=== PATIENT | male | born 1980 | race Caucasian/White ===

== ENCOUNTER 2018-12-25 20:27 | Inpatient (IN) | payer BC ==
[2018-12-25 21:30] LABS: Basophils # (A) 0.3 k/uL (0-0.2); Basophils % (A) 2 %; Eosinophils # (A) 0.2 k/uL (0-0.7); Eosinophils % (A) 1 %; HCT 47.2 % (39.0-53.0); HGB 15.3 gm/dL (13.0-17.5); Lymphocytes # (A) 2.3 k/uL (1.0-4.8); Lymphocytes % (A) 11 %; MCH 31.3 pg (25.0-35.0); MCHC 32.4 g/dL (31.0-37.0); MCV 96.4 fL (80.0-100.0); Mean Platelet Volume 6.6; Monocytes # (A) 1.1 k/uL (0-1.0); Monocytes % (A) 6 %; Neutrophils # (A) 16.1 k/uL (1.3-7.7); Neutrophils % (A) 80 %; Platelet Count 313 k/uL (150-450); RBC 4.89 m/uL (4.30-5.90); RDW 12.2 % (11.5-15.5); WBC 20.2 k/uL (3.8-10.6)
[2018-12-25 21:51] LABS: INR 0.9 (<1.2); Partial Thromboplastin Time 29.1 sec (22.0-30.0); Prothrombin Time 9.4 sec (9.0-12.0)
[2018-12-25] MEDS ORDERED: ACETAMINOPHEN TAB 325 MG TAB PO STA (21:55)
[2018-12-25] MEDS ORDERED: IPRATROPIUM-ALBUTEROL 3 ML NEB INHALATION STA (21:55)
[2018-12-25] MEDS ORDERED: ALBUTEROL NEBULIZED 2.5 MG/3 ML INHALATION STA ×2 (21:55→23:04)
--- NOTE | 2018-12-25 21:56 | XR ---
EXAMINATION TYPE: XR chest 2V DATE OF EXAM: 12/25/2018 COMPARISON: NONE HISTORY: Short of breath and cough TECHNIQUE: Frontal and lateral views of the chest are obtained. FINDINGS: Heart and mediastinum are normal. Lungs are clear. Diaphragm is normal. Bony thorax appear s normal. IMPRESSION: Normal chest. Normal heart.
[2018-12-25 22:00] LABS: ALT 29 U/L (21-72); AST 26 U/L (17-59); African American GFR (CKD) >90 (>60 ml/min/1.73 sqM); Albumin 4.5 g/dL (3.5-5.0); Alkaline Phosphatase 94 U/L (38-126); Anion Gap 14 mmol/L; Blood Urea Nitrogen 19 mg/dL (9-20); Calcium 9.6 mg/dL (8.4-10.2); Carbon Dioxide 26 mmol/L (22-30); Chloride 96 mmol/L (98-107); Glucose 92 mg/dL (74-99); Potassium 3.9 mmol/L (3.5-5.1); Sodium 136 mmol/L (137-145); Total Bilirubin 0.5 mg/dL (0.2-1.3); Total Protein 7.6 g/dL (6.3-8.2)
--- NOTE | 2018-12-25 22:02 | ED ---
SOB HPI - General Chief Complaint: Shortness of Breath Stated Complaint: POSS PNEUMONIA Time Seen by Provider: 12/25/18 21:34 Source: patient Mode of arrival: ambulatory Limitations: no limitations - History of Present Illness Initial Comments: This patient is a 38-year-old man with history of asthma that was worse as child. He states that he is having shortness of breath, cough, wheezing, and chest pain. The symptoms started Saturday with upper respiratory congestion and drainage. He states that seem to move to his chest over the next couple of days. He had gone to the [facility] and then was seen at an urgent care there Saturday. He was told that sounded like asthma and he was given prednisone. He has been taking 40 mg of prednisone per day but has not felt much better yet. He did return today and states that he feels significant short of breath, was having wheezing and cough. Also noting fevers today. The cough is nonproductive. The pain is at the upper chest and seems to be worse with cough and deep breath. No relieving factors. Moderate to severe intensity. He declines analgesic at initial history and physical other than Tylenol for the fever. MD Complaint: shortness of breath, pain with inspiration -: days(s) Severity: severe Quality: sharp Consistency: constant Improves With: nothing Worsens With: coughing, inspiration Known History Of: asthma Treatments Prior to Arrival: other (Prednisone) - Related Data Home Oxygen Therapy: No Home Medications Medication Instructions Recorded Confirmed Lisinopril [Prinivil] 10 mg PO DAILY 12/25/18 12/25/18 Loratadine [Claritin] 10 mg PO DAILY 12/25/18 12/25/18 guaiFENesin [Mucinex] 600 mg PO BID PRN 12/25/18 12/25/18 predniSONE 40 mg PO DAILY 12/25/18 12/25/18 Allergies Allergy/AdvReac Type Severity Reaction Status Date / Time No Known Allergies Allergy Unverified 12/25/18 21:38 Review of Systems ROS Statement: Those systems with pertinent positive or pertinent negative responses have been documented in the HPI. ROS Other: All systems not noted in ROS Statement are negative. Constitutional: Reports: fever, chills. Denies: weakness Respiratory: Reports: cough, dyspnea, wheezes. Denies: hemoptysis Cardiovascular: Reports: chest pain. Denies: palpitations, orthopnea, edema, syncope Gastrointestinal: Denies: abdominal pain, nausea, vomiting Genitourinary: Denies: dysuria, hematuria Musculoskeletal: Denies: back pain Skin: Denies: rash Neurological: Denies: headache, weakness, numbness Past Medical History Past Medical History: Atrial Fibrillation, Asthma, Hypertension History of Any Multi-Drug Resistant Organisms: None Reported Additional Past Surgical History / Comment(s): lip repair, eye surgery Past Psychological History: No Psychological Hx Reported Smoking Status: Current every day smoker Past Alcohol Use History: Heavy Past Drug Use History: Marijuana General Exam Limitations: no limitations General appearance: alert, in no apparent distress Head exam: Present: atraumatic, normocephalic Eye exam: Present: normal appearance. Absent: scleral icterus, conjunctival injection ENT exam: Present: mucous membranes dry Neck exam: Present: normal inspection, full ROM Respiratory exam: Present: respiratory distress (Mild tachypnea), wheezes. Absent: rales, rhonchi, stridor, accessory muscle use, decreased breath sounds, prolonged expiratory Cardiovascular Exam: Present: normal rhythm, tachycardia (Rate approximately 104 at my exam), normal heart sounds. Absent: systolic murmur, diastolic murmur, rubs, gallop GI/Abdominal exam: Present: soft. Absent: distended, tenderness, guarding, rebound, rigid, mass Extremities exam: Present: normal inspection, normal capillary refill. Absent: pedal edema, calf tenderness Back exam: Present: normal inspection. Absent: CVA tenderness (R), CVA tenderness (L) Neurological exam: Present: alert Skin exam: Present: warm, dry, intact, normal color. Absent: rash Course Vital Signs 12/25/18 12/25/18 12/25/18 20:56 21:47 22:02 Temperature 100.6 F H 97.1 F L Pulse Rate 119 H Respiratory 24 22 Rate Blood Pressure 172/87 Blood Pressure 114/84 [Left Arm] O2 Sat by Pulse 92 L 90 L Oximetry 12/25/18 12/25/18 22:15 22:25 Temperature Pulse Rate 118 H 128 H Respiratory Rate Blood Pressure Blood Pressure [Left Arm] O2 Sat by Pulse Oximetry Medical Decision Making - Lab Data Result diagrams: 12/25/18 21:12 12/25/18 21:12 Lab Results 12/25/18 12/25/18 12/25/18 Range/Units 21:12 21:12 21:12 WBC 20.2 H (3.8-10.6) k/uL RBC 4.89 (4.30-5.90) m/uL Hgb 15.3 (13.0-17.5) gm/dL Hct 47.2 (39.0-53.0) % MCV 96.4 (80.0-100.0) fL MCH 31.3 (25.0-35.0) pg MCHC 32.4 (31.0-37.0) g/dL RDW 12.2 (11.5-15.5) % Plt Count 313 (150-450) k/uL Neutrophils % 80 % Lymphocytes % 11 % Monocytes % 6 % Eosinophils % 1 % Basophils % 2 % Neutrophils # 16.1 H (1.3-7.7) k/uL Lymphocytes # 2.3 (1.0-4.8) k/uL Monocytes # 1.1 H (0-1.0) k/uL Eosinophils # 0.2 (0-0.7) k/uL Basophils # 0.3 H (0-0.2) k/uL PT (9.0-12.0) sec INR (<1.2) APTT (22.0-30.0) sec D-Dimer (<0.60) mg/L FEU Sodium 136 L (137-145) mmol/L Potassium 3.9 (3.5-5.1) mmol/L Chloride 96 L (98-107) mmol/L Carbon Dioxide 26 (22-30) mmol/L Anion Gap 14 mmol/L BUN 19 (9-20) mg/dL Creatinine 0.91 (0.66-1.25) mg/dL Est GFR (CKD-EPI)AfAm >90 (>60 ml/min/1.73 sqM) Est GFR (CKD-EPI)NonAf >90 (>60 ml/min/1.73 sqM) Glucose 92 (74-99) mg/dL Plasma Lactic Acid Eric 1.4 (0.7-2.0) mmol/L Calcium 9.6 (8.4-10.2) mg/dL Total Bilirubin 0.5 (0.2-1.3) mg/dL AST 26 (17-59) U/L ALT 29 (21-72) U/L Alkaline Phosphatase 94 (38-126) U/L Troponin I (0.000-0.034) ng/mL Total Protein 7.6 (6.3-8.2) g/dL Albumin 4.5 (3.5-5.0) g/dL 12/25/18 12/25/18 12/25/18 Range/Units 21:12 21:12 21:12 WBC (3.8-10.6) k/uL RBC (4.30-5.90) m/uL Hgb (13.0-17.5) gm/dL Hct (39.0-53.0) % MCV (80.0-100.0) fL MCH (25.0-35.0) pg MCHC (31.0-37.0) g/dL RDW (11.5-15.5) % Plt Count (150-450) k/uL Neutrophils % % Lymphocytes % % Monocytes % % Eosinophils % % Basophils % % Neutrophils # (1.3-7.7) k/uL Lymphocytes # (1.0-4.8) k/uL Monocytes # (0-1.0) k/uL Eosinophils # (0-0.7) k/uL Basophils # (0-0.2) k/uL PT 9.4 (9.0-12.0) sec INR 0.9 (<1.2) APTT 29.1 (22.0-30.0) sec D-Dimer 0.42 (<0.60) mg/L FEU Sodium (137-145) mmol/L Potassium (3.5-5.1) mmol/L Chloride (98-107) mmol/L Carbon Dioxide (22-30) mmol/L Anion Gap mmol/L BUN (9-20) mg/dL Creatinine (0.66-1.25) mg/dL Est GFR (CKD-EPI)AfAm (>60 ml/min/1.73 sqM) Est GFR (CKD-EPI)NonAf (>60 ml/min/1.73 sqM) Glucose (74-99) mg/dL Plasma Lactic Acid Eric (0.7-2.0) mmol/L Calcium (8.4-10.2) mg/dL Total Bilirubin (0.2-1.3) mg/dL AST (17-59) U/L ALT (21-72) U/L Alkaline Phosphatase (38-126) U/L Troponin I <0.012 (0.000-0.034) ng/mL Total Protein (6.3-8.2) g/dL Albumin (3.5-5.0) g/dL - EKG Data -: EKG Interpreted by Il EKG shows normal: sinus rhythm, axis (Normal), intervals (Normal), QRS complexes (Normal), ST-T waves (Normal) Rate: tachycardia (Rate 106 bpm) Disposition Clinical Impression: Acute bronchitis Disposition: ADMITTED IP TO THIS HOSP Condition: Fair Referrals: Erasto Ricketts DO [Primary Care Provider] - 1-2 days
[2018-12-25] MEDS ORDERED: methylPREDNISolone SOD SUCCI 125 MG/2 ML VIAL IV STA (23:04)
[2018-12-25] MEDS ORDERED: ALBUTEROL NEBULIZED 2.5 MG/3 ML INHALATION PRN (23:12)
[2018-12-25] MEDS: SODIUM CHLORIDE 0.9% 1,000 ML IV SCH (23:23)
[2018-12-25] MEDS ORDERED: NICOTINE 21MG/24HR PATCH TRANSDERM STA (23:59)
[2018-12-26] MEDS ORDERED: IBUPROFEN 600 MG TAB PO STA (00:06)
[2018-12-26] MEDS ORDERED: ACETAMINOPHEN TAB 325 MG TAB PO PRN (00:07)
[2018-12-26 01:22] VITALS: BMI 25.0
[2018-12-26] MEDS: IPRATROPIUM-ALBUTEROL 3 ML NEB INHALATION SCH ×4 (07:17→19:05)
[2018-12-26] MEDS ORDERED: SYMBICORT 80-4.5 MCG INHALER INHALATION SCH (08:00)
[2018-12-26] MEDS: guaiFENesin 600 MG TABLET.ER PO SCH ×2 (08:57→21:25)
[2018-12-26] MEDS: SODIUM CHLORIDE 0.9% 1,000 ML IV SCH (08:57)
[2018-12-26] MEDS: NICOTINE 21MG/24HR PATCH TRANSDERM SCH (08:57)
[2018-12-26] MEDS ORDERED: predniSONE 20 MG TAB PO SCH (09:00)
--- NOTE | 2018-12-26 12:29 | CONS ---
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 The patient came in with complaints of increasing shortness of breath, chest tightness, wheezing cough and chest discomfort. It had been going on for some time. He apparently saw his doctor who prescribed some prednisone and an antibiotic. He states it seemed like he initially got better but than got worse again. He apparently was in the [facility] and got worse. He visited an urgent care center or health clinic up in that area. He decided to drive back down to the [facility]. He ended up in the emergency room on December 25 with shortness of breath. He does have a history of childhood asthma. Does carry around a rescue inhaler that he uses infrequently. The patient complains of chest tightness, wheezing, cough, shortness of breath and phlegm production. He is feeling better now than he was earlier. He does smoke cigarettes. 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 Hence, the inhalation of smoke and other things like that. HOME MEDICATIONS: His home medications include lisinopril, loratadine, guaifenesin, prednisone and a rescue inhaler. The prednisone was just recently given to him. His only chronic medications really are the lisinopril and a rescue inhaler and Claritin. ALLERGIES: Allergies are denied. MEDICAL HISTORY: Medical history includes hypertension, asthma, and a history of atrial fibrillation. SURGICAL HISTORY: Surgical history includes eye surgery and lip repair. SOCIAL HISTORY: Social history is positive for ongoing tobacco use. He also drinks heavily and apparently has used marijuana in the past. FAMILY HISTORY: Family history is unremarkable. Parents are otherwise healthy, I believe. REVIEW OF SYSTEMS: CONSTITUTIONAL: Negative. NEUROLOGIC: Negative. HEENT: Negative. CARDIOVASCULAR: Negative. PULMONARY: Shortness of breath, chest tightness, wheezing, cough, phlegm production. GI: Negative. : Negative. RHEUMATOLOGIC: Negative. IMMUNOLOGIC: Negative. ENDOCRINOLOGIC: Negative. DERMATOLOGIC: Negative. PHYSICAL EXAMINATION: VITAL SIGNS: Current vital signs are reviewed. They include a temperature 97.4, heart rate 72, respiratory rate 20, blood pressure 120/72, mean 88 and 2 L saturation 96%. GENERAL: Appears in no acute distress. HEENT: Examination is grossly unremarkable. Mucous membranes are moist. No oral lesions. Nasal O2 in place. NECK: Supple. Full range of motion. No adenopathy. Neck veins are flat. CARDIOVASCULAR: Examination reveals regular rhythm and rate. Heart rate mid 70s. S1, S2 normal. No murmur. LUNGS: Reveal coarse inspiratory and expiratory wheezes. Breath sounds are diminished. There is prolongation. No crackles. Breath sounds are equal bilaterally. ABDOMEN: Soft. Bowel sounds are heard. EXTREMITIES: Are intact. No cyanosis, clubbing, or edema. SKIN: Without rash. NEUROLOGIC: Examination is brief but nonfocal. LAB DATA: Lab data is reviewed. White count 20.2, hemoglobin 15.3, hematocrit 47.2, platelet count 313,000. PT, INR, PTT and D-dimer all normal. Sodium 136, potassium 3.9, chloride 96, CO2 is 26. BUN and creatinine were 19 and 0.91. Anion gap is normal. The rest of his comprehensive metabolic profile was negative. Influenza screen was negative. A chest x-ray shows normal chest. MEDICATIONS: Medications are reviewed. ASSESSMENT: 1. Asthma exacerbation complicated by purulent tracheobronchitis. 2. Rule out chronic obstructive pulmonary disease from chronic tobacco use. 3. History of chronic tobacco abuse. 4. History of heavy alcohol use. 5. Previous history of marijuana use. 6. History of hypertension. PLAN: The patient's medications are adjusted accordingly. Currently, he is on Solu-Medrol 60 q.6. He is getting a nicotine patch. The patient is on ceftriaxone. It can be switched to an oral antibiotic. His other medications are reviewed. Additional recommendations and suggestions are forthcoming. He is counseled about the importance of smoking cessation. Additional recommendations and suggestions are made. MMODL / IJN: [id number] /
[2018-12-26] MEDS: methylPREDNISolone SOD SUCCI 125 MG/2 ML VIAL IV SCH ×3 (12:35→23:53)
[2018-12-26] MEDS: AZITHROMYCIN 500 MG TAB PO SCH (12:36)
[2018-12-26] MEDS: HEPARIN SODIUM,PORCINE 5,000 UNIT/ML 1 ML VIAL SQ SCH ×2 (15:15→23:54)
[2018-12-26 17:22] LABS: Glucose,Whole Blood 200 mg/dL (75-99)
[2018-12-26] MEDS: FORMOTEROL FUMARATE 20 MCG/2 ML NEBU INHALATION SCH (19:05)
[2018-12-26] MEDS: BUDESONIDE 1 MG/2 ML NEBU INHALATION SCH (19:06)
--- NOTE | 2018-12-26 21:33 | P.HPIM ---
History of Present Illness H&P Date: 12/26/18 Chief Complaint: Shortness of breath Patient is a 38-year-old male with a known history of childhood asthma, anxiety/PTSD, ongoing nicotine addiction-smokes 1-1/2 pack per day and hypertension came to ER with complaints of worsening shortness of breath, wheezing and chest tightness. Patient says that his symptoms started last Saturday with upper respiratory infection and nasal congestion and drainage. Patient was seen by his primary care physician and prescribed prednisone tapering course. Patient was also given antibiotics but patient does not know which antibiotic. His symptoms started to get better. Patient traveled to [facility] and symptoms started to get worse. Patient was seen by urgent care on Saturday and was given prednisone 40 mg daily. Her symptoms. Has not been getting better which made him come to ER. Patient says that she felt significantly shortness breath and wheezing and cough. Patient says that he was hypoxic at home. Pulse ox level was 86% as per patient. Patient does have cough without sputum production. WORSE with deep breathing. No fever no chills. Not much sputum production. Denied any nausea vomiting or diarrhea. No headache or dizziness or lightheadedness. Patient continues to smoke daily. EKG showed sinus tachycardia Chest x-ray is negative. WBC 20.2. Influenza PCR negative Review of Systems Constitutional: Patient denies any fever or chills . No generalized weakness or weight loss. Abdomen: Patient denied nausea vomiting and diarrhea and abdominal pain. Cardiovascular: Patient denies any chest pain or short of breath no palpitations. Respiratory: Cough congestion and shortness of breath and wheezing Neurologic: Patient denied any numbness or tingling headache. Musculoskeletal: Patient denies any complaints of joint swelling or deformity. Skin: Negative Psychiatric: Negative Endocrine: No heat or cold intolerance. No recent weight gain. Genitourinary: No dysuria or hematuria. All other 14 point ROS negative except the above Past Medical History Past Medical History: Atrial Fibrillation, Asthma, Hypertension History of Any Multi-Drug Resistant Organisms: None Reported Additional Past Surgical History / Comment(s): lip repair, eye surgery Past Psychological History: Anxiety, PTSD Smoking Status: Current every day smoker Past Alcohol Use History: Heavy Additional Past Alcohol Use History / Comment(s): drinks 2-3 drinks daily. Past Drug Use History: Marijuana - Past Family History Father Family Medical History: No Reported History Mother Family Medical History: No Reported History Sister(s) Family Medical History: No Reported History Medications and Allergies Home Medications Medication Instructions Recorded Confirmed Type Albuterol Sulfate [Ventolin HFA] 2 puff INHALATION RT-QID PRN 12/25/18 12/25/18 History Lisinopril [Prinivil] 10 mg PO DAILY 12/25/18 12/25/18 History Loratadine [Claritin] 10 mg PO DAILY 12/25/18 12/25/18 History guaiFENesin [Mucinex] 600 mg PO BID 12/25/18 12/25/18 History predniSONE 40 mg PO DAILY 12/25/18 12/25/18 History Allergies Allergy/AdvReac Type Severity Reaction Status Date / Time No Known Allergies Allergy Unverified 12/25/18 21:38 Physical Exam Vitals: Vital Signs Temp Pulse Pulse Resp BP BP Pulse Ox 12/26/18 07:31 76 12/26/18 07:17 68 12/26/18 05:42 97.4 F L 62 20 120/72 96 12/26/18 02:00 98.1 F 20 12/26/18 00:50 98.4 F 101 H 22 133/79 90 L 12/25/18 23:57 101.9 F H 108 H 20 127/65 94 L 12/25/18 23:27 118 H 12/25/18 23:17 122 H 12/25/18 22:25 128 H 12/25/18 22:15 118 H 12/25/18 22:02 97.1 F L 12/25/18 21:47 22 114/84 90 L 12/25/18 20:56 100.6 F H 119 H 24 172/87 92 L Intake and Output 12/25/18 12/26/18 12/26/18 22:59 06:59 14:59 Other: # Voids 1 Weight 88.451 kg PHYSICAL EXAMINATION: Patient is lying in the bed comfortably, no acute distress, awake alert and oriented.. HEENT: Normocephalic. Neck is supple. Pupils reactive. Nostrils clear. Oral cavity is moist. Ears reveal no drainage. Neck reveals no JVD, carotid bruits, or thyromegaly. CHEST EXAMINATION: Trachea is central. Symmetrical expansion. Bilateral diffuse wheezing. No crackles or rhonchi.. CARDIAC: Normal S1, S2 with no gallops. No murmurs ABDOMEN: Soft. Bowel sounds normal. No organomegaly. No abdominal bruits. Extremities: reveal no edema. No clubbing or cyanosis Neurologically awake, alert, oriented x3 with well-coordinated movements. No focal deficits noted Skin: No rash or skin lesions. Psychiatric: Coperative. Nonsuicidal Musculoskeletal: No joint swelling or deformity. Normal range of motion. Results CBC & Chem 7: 12/25/18 21:12 12/25/18 21:12 Labs: Abnormal Lab Results - Last 24 Hours (Table) 12/25/18 12/25/18 Range/Units 21:12 21:12 WBC 20.2 H (3.8-10.6) k/uL Neutrophils # 16.1 H (1.3-7.7) k/uL Monocytes # 1.1 H (0-1.0) k/uL Basophils # 0.3 H (0-0.2) k/uL Sodium 136 L (137-145) mmol/L Chloride 96 L (98-107) mmol/L Thrombosis Risk Factor Assmnt - DVT/VTE Prophylaxis DVT/VTE Prophylaxis: Pharmacologic Prophylaxis ordered - Choose All That Apply Any of the Below Risk Factors Present?: No Other Risk Factors: No Other congenital or acquired thrombophilia - If yes, enter type in comment: No Thrombosis Risk Factor Assessment Level: Very Low Risk Assessment and Plan Assessment: Acute bronchospasm/asthma exacerbation due to acute tracheobronchitis Possible underlying COPD History of childhood asthma Hypertension Anxiety/PTSD History of marijuana use Alcohol abuse Ongoing nicotine addiction DVT prophylaxis with heparin subcu Plan: Patient will be continued on IV Solu-Medrol. Patient was given a dose of ceftriaxone in the ER. Patient was started on azithromycin. Pulmonary is following. Continue with DuoNeb's and follow up closely. Oxygen therapy as needed. Further recommendations based on the clinical course. Patient was counseled extensively for smoking cessation. Time with Patient: Greater than 30
[2018-12-27] MEDS: methylPREDNISolone SOD SUCCI 125 MG/2 ML VIAL IV SCH ×3 (06:20→17:56)
[2018-12-27 07:04] LABS: Glucose,Whole Blood 142 mg/dL (75-99)
[2018-12-27] MEDS: IPRATROPIUM-ALBUTEROL 3 ML NEB INHALATION SCH ×4 (07:27→20:04)
[2018-12-27] MEDS: FORMOTEROL FUMARATE 20 MCG/2 ML NEBU INHALATION SCH ×2 (07:27→20:03)
[2018-12-27] MEDS: BUDESONIDE 1 MG/2 ML NEBU INHALATION SCH ×2 (07:27→20:04)
[2018-12-27] MEDS: HEPARIN SODIUM,PORCINE 5,000 UNIT/ML 1 ML VIAL SQ SCH ×2 (07:44→16:16)
[2018-12-27] MEDS: NICOTINE 21MG/24HR PATCH TRANSDERM SCH (07:45)
[2018-12-27] MEDS: THIAMINE 100 MG TAB PO SCH (07:45)
[2018-12-27] MEDS: guaiFENesin 600 MG TABLET.ER PO SCH ×2 (07:45→21:18)
[2018-12-27 07:52] LABS: HCT 45.5 % (39.0-53.0); HGB 14.6 gm/dL (13.0-17.5); MCH 31.7 pg (25.0-35.0); MCHC 32.1 g/dL (31.0-37.0); MCV 98.8 fL (80.0-100.0); Mean Platelet Volume 6.8; Platelet Count 405 k/uL (150-450); RBC 4.61 m/uL (4.30-5.90); RDW 12.3 % (11.5-15.5); WBC 24.4 k/uL (3.8-10.6)
[2018-12-27 07:57] LABS: African American GFR (CKD) >90 (>60 ml/min/1.73 sqM); Anion Gap 14 mmol/L; Blood Urea Nitrogen 12 mg/dL (9-20); Carbon Dioxide 21 mmol/L (22-30); Chloride 105 mmol/L (98-107); Glucose 150 mg/dL (74-99); Potassium 4.6 mmol/L (3.5-5.1); Sodium 140 mmol/L (137-145)
[2018-12-27] MEDS: LISINOPRIL 10 MG TAB PO SCH (12:01)
[2018-12-27] MEDS: AZITHROMYCIN 500 MG TAB PO SCH (12:01)
--- NOTE | 2018-12-27 12:30 | CT ---
EXAMINATION TYPE: CT angio chest DATE OF EXAM: 12/27/2018 12:02 PM COMPARISON: None. HISTORY: Difficulty breathing CT DLP: 578 mGycm Automated exposure control for dose reduction was used. CONTRAST: CTA scan of the thorax is performed with IV Contrast, patient injected with 100 mL of Isovue 370, pul monary embolism protocol. . FINDINGS: There is some atelectasis or consolidation within the right middle lobe and also left lingu la. There is patchy groundglass opacity throughout the left lung in both the upper and lower lobes. There is no significant axillary adenopathy. There is some shotty mediastinal adenopathy. There is no significant hilar adenopathy There is no evidence of pulmonary embolus. The aorta is normal in caliber without evidence of dissection. There is no pleural or pericardial flu id. The heart is not enlarged. Visualized portions of the upper abdomen are unremarkable. There is minimal hypertrophic spondylosis within the spine. IMPRESSION: 1. THIS EXAMINATION IS NEGATIVE FOR PULMONARY EMBOLUS. 2. PATCHY GROUNDGLASS OPACITIES THROUGHOUT THE LEFT LUNG MAY REFLECT PNEUMONITIS. THERE IS MORE SOLID CONSOLIDATION IN THE RIGHT MIDDLE LOBE AND LEFT LINGULA. PLEASE CORRELATE FOR PNEUMONIA.
[2018-12-27] MEDS ORDERED: cefTRIAXone 1,000 MG VIAL (IM USE) IM SCH (13:00)
--- NOTE | 2018-12-27 13:11 | P.PN ---
Subjective Progress Note Date: 12/27/18 Principal diagnosis: Acute exacerbation of chronic bronchial asthma, complicated by purulent tracheobronchitis. The patient is seen today 12/27/2018 in follow-up on the regular medical floor. He is awake and alert in no acute distress. He is breathing a little easier today as compared to yesterday. Not quite back to his baseline. Continues with a cough and dyspnea on exertion. Some chest tightness and wheezing. Blood culture reveals no growth to date. Sputum cultures pending. White count 24.4. Hemoglobin 14.6. Creatinine 0.66. Glucose 150. CT angiogram ruled out pulmonary embolus. There is some patchy groundglass opacities throughout the left lung with possible pneumonitis. There is solid consolidation in the right middle lobe and left lingula suspicious for pneumonia. He is currently on azithromycin. Objective - Vital Signs Vital signs: Vital Signs Temp 97.5 F L 12/27/18 07:00 Pulse 93 12/27/18 11:17 Resp 16 12/27/18 07:00 BP 153/91 12/27/18 07:00 Pulse Ox 92 L 12/27/18 07:00 Intake & Output 12/26/18 12/27/18 12/27/18 18:59 06:59 18:59 Intake Total 1080 Balance 1080 Intake: Oral 1080 Other: # Voids 3 3 - Exam GENERAL EXAM: Alert, pleasant 38-year-old gentleman, comfortable in no apparent distress. On 2 L nasal cannula. HEAD: Normocephalic. EYES: Normal reaction of pupils, equal size. NOSE: Clear with pink turbinates. THROAT: No erythema or exudates. NECK: No masses, no JVD. CHEST: No chest wall deformity. LUNGS: Equal air entry with few scattered rhonchi, end expiratory wheeze, diminished. CVS: S1 and S2 normal with no audible murmur, regular rhythm. ABDOMEN: No hepatosplenomegaly, normal bowel sounds, no guarding or rigidity. SPINE: No scoliosis or deformity SKIN: No rashes CENTRAL NERVOUS SYSTEM: No focal deficits, tone is normal in all 4 extremities. EXTREMITIES: There is no peripheral edema. No clubbing, no cyanosis. Peripheral pulses are intact. - Labs CBC & Chem 7: 12/27/18 07:10 12/27/18 07:10 Labs: Abnormal Lab Results - Last 24 Hours (Table) 12/26/18 12/27/18 12/27/18 Range/Units 17:20 07:03 07:10 WBC 24.4 H (3.8-10.6) k/uL Carbon Dioxide (22-30) mmol/L Glucose (74-99) mg/dL POC Glucose (mg/dL) 200 H 142 H (75-99) mg/dL 12/27/18 Range/Units 07:10 WBC (3.8-10.6) k/uL Carbon Dioxide 21 L (22-30) mmol/L Glucose 150 H (74-99) mg/dL POC Glucose (mg/dL) (75-99) mg/dL Microbiology - Last 24 Hours (Table) 12/26/18 22:11 Sputum Culture - Preliminary Sputum 12/25/18 21:12 Blood Culture - Preliminary Blood No Growth after 24 hours Assessment and Plan Assessment: Impression: #1 Acute exacerbation of chronic bronchial asthma, complicated by purulent tracheobronchitis and multilobar pneumonia. #2 Chronic and ongoing tobacco dependence including vaping. #3 Hypertension. #4 History of previous marijuana use. #5 History of alcohol use. Plan: The patient was seen and evaluated by Dr. Chacko. CAT scan and labs were reviewed. We'll continue with his current treatment plan. Add ceftriaxone in addition to the 80s azithromycin. He is educated regarding importance of complete smoking cessation. Habitrol patch is in place. Titrate down the FiO2 as tolerated. We will continue to follow and make further recommendations based on his clinical status. I, the cosigning physician, performed a history & physical examination of the patient. Lungs sounds with few scattered rhonchi, end expiratory wheeze, dimi nished. Maintaining good O2 saturations in the 90s on 2 L/m per nasal cannula. I discussed the assessment and plan of care with my nurse practitioner, Miriam Gomez. I attest to the above note as dictated by her.
[2018-12-28] MEDS: methylPREDNISolone SOD SUCCI 125 MG/2 ML VIAL IV SCH ×5 (00:39→21:33)
[2018-12-28] MEDS: HEPARIN SODIUM,PORCINE 5,000 UNIT/ML 1 ML VIAL SQ SCH ×4 (00:40→23:22)
--- NOTE | 2018-12-28 01:09 | P.PN ---
Subjective Progress Note Date: 12/27/18 Principal diagnosis: Acute COPD exacerbation Patient is a 38-year-old male with a known history of childhood asthma, anxiety/PTSD, ongoing nicotine addiction-smokes 1-1/2 pack per day and hypertension came to ER with complaints of worsening shortness of breath, wheezing and chest tightness. Patient says that his symptoms started last Saturday with upper respiratory infection and nasal congestion and drainage. Patient was seen by his primary care physician and prescribed prednisone tapering course. Patient was also given antibiotics but patient does not know which antibiotic. His symptoms started to get better. Patient traveled to [facility] and symptoms started to get worse. Patient was seen by urgent care on Saturday and was given prednisone 40 mg daily. Her symptoms. Has not been getting better which made him come to ER. Patient says that she felt signi ficantly shortness breath and wheezing and cough. Patient says that he was hypoxic at home. Pulse ox level was 86% as per patient. Patient does have cough without sputum production. WORSE with deep breathing. No fever no chills. Not much sputum production. Denied any nausea vomiting or diarrhea. No headache or dizziness or lightheadedness. Patient continues to smoke daily. EKG showed sinus tachycardia Chest x-ray is negative. WBC 20.2. Influenza PCR negative 12 27 2018 Patient is still having exertional dyspnea, chest tightness and wheezing. No complaints of chest pain. No fever no chills. Patient is being continued on IV steroids and DuoNeb's. WBC count is 24.4 today. D-dimer was not elevated on admission. CT angiogram showed no evidence of pulmonary embolism. Patchy groundglass opacities throughout the left lung may reflect pneumonitis. There is more solid consolidation the right middle lobe and left lingula. Correlate for pneumonia. Ceftriaxone was added along with azithromycin. Pulmonary is on board. Currently patient is still requiring oxygen via nasal cannula. No nausea vomiting or abdominal pain. No diarrhea. No headache or dizziness or lightheadedness. Current medications reviewed. Objective - Vital Signs Vital signs: Vital Signs Temp 97.6 F 12/27/18 12:30 Pulse 82 12/27/18 15:52 Resp 16 12/27/18 12:30 BP 144/84 12/27/18 12:30 Pulse Ox 90 L 12/27/18 12:30 Intake & Output 10/02/0312/27/18 12/27/18 18:59 06:59 18:59 Intake Total 1080 Balance 1080 Intake: Oral 1080 Other: # Voids 3 3 3 # Bowel Movements 1 - Exam PHYSICAL EXAMINATION: Patient is lying in the bed comfortably, no acute distress, awake alert and oriented.. HEENT: Normocephalic. Neck is supple. Pupils reactive. Nostrils clear. Oral cavity is moist. Ears reveal no drainage. Neck reveals no JVD, carotid bruits, or thyromegaly. CHEST EXAMINATION: Trachea is central. Symmetrical expansion. Bilateral expiratory wheeze and scattered rhonchi. CARDIAC: Normal S1, S2 with no gallops. No murmurs ABDOMEN: Soft. Bowel sounds normal. No organomegaly. No abdominal bruits. Extremities: reveal no edema. No clubbing or cyanosis Neurologically awake, alert, oriented x3 with well-coordinated movements. No focal deficits noted Skin: No rash or skin lesions. Psychiatric: Coperative. Nonsuicidal Musculoskeletal: No joint swelling or deformity. Normal range of motion. - Labs CBC & Chem 7: 12/27/18 07:10 12/27/18 07:10 Labs: Abnormal Lab Results - Last 24 Hours (Table) 12/27/18 12/27/18 12/27/18 Range/Units 07:03 07:10 07:10 WBC 24.4 H (3.8-10.6) k/uL Carbon Dioxide 21 L (22-30) mmol/L Glucose 150 H (74-99) mg/dL POC Glucose (mg/dL) 142 H (75-99) mg/dL Microbiology - Last 24 Hours (Table) 12/26/18 22:11 Sputum Culture - Preliminary Sputum 12/25/18 21:12 Blood Culture - Preliminary Blood No Growth after 24 hours Assessment and Plan Assessment: Acute bronchospasm/asthma exacerbation due to acute tracheobronchitis Bilateral interstitial pneumonitis. Possible underlying COPD History of childhood asthma Hypertension Anxiety/PTSD History of marijuana use Alcohol abuse Ongoing nicotine addiction DVT prophylaxis with heparin subcu Plan: Patient will be continued on IV Solu-Medrol. Patient was given a dose of ceftriaxone in the ER. Continue With ceftriaxone and azithromycin. Pulmonary is following. Continue with DuoNeb's and follow up closely. Oxygen therapy as needed. Further recommendations based on the clinical course. Patient was counseled extensively for smoking cessation. Time with Patient: Greater than 30
[2018-12-28] MEDS: NICOTINE 21MG/24HR PATCH TRANSDERM SCH (09:18)
[2018-12-28] MEDS: guaiFENesin 600 MG TABLET.ER PO SCH ×2 (09:19→21:34)
[2018-12-28] MEDS: LISINOPRIL 10 MG TAB PO SCH (09:19)
[2018-12-28] MEDS: THIAMINE 100 MG TAB PO SCH (09:19)
[2018-12-28] MEDS: FORMOTEROL FUMARATE 20 MCG/2 ML NEBU INHALATION SCH ×2 (09:50→20:51)
[2018-12-28] MEDS: IPRATROPIUM-ALBUTEROL 3 ML NEB INHALATION SCH ×4 (09:50→20:51)
[2018-12-28] MEDS: BUDESONIDE 1 MG/2 ML NEBU INHALATION SCH ×2 (09:50→20:51)
[2018-12-28] MEDS: LORATADINE 10 MG TAB PO SCH (11:16)
[2018-12-28 11:37] LABS: Basophils # (A) 0.3 k/uL (0-0.2); Basophils % (A) 2 %; Eosinophils # (A) 0.1 k/uL (0-0.7); Eosinophils % (A) 1 %; HCT 46.2 % (39.0-53.0); HGB 14.7 gm/dL (13.0-17.5); Lymphocytes # (A) 1.4 k/uL (1.0-4.8); Lymphocytes % (A) 6 %; MCH 31.3 pg (25.0-35.0); MCHC 31.8 g/dL (31.0-37.0); MCV 98.4 fL (80.0-100.0); Mean Platelet Volume 6.7; Monocytes # (A) 1.1 k/uL (0-1.0); Monocytes % (A) 5 %; Neutrophils # (A) 18.1 k/uL (1.3-7.7); Neutrophils % (A) 85 %; Platelet Count 435 k/uL (150-450); RDW 12.3 % (11.5-15.5); WBC 21.3 k/uL (3.8-10.6)
[2018-12-28 11:45] LABS: African American GFR (CKD) >90 (>60 ml/min/1.73 sqM); Anion Gap 10 mmol/L; Blood Urea Nitrogen 18 mg/dL (9-20); Carbon Dioxide 26 mmol/L (22-30); Chloride 102 mmol/L (98-107); Glucose 131 mg/dL (74-99); Potassium 4.9 mmol/L (3.5-5.1); Sodium 138 mmol/L (137-145)
[2018-12-28] MEDS: AZITHROMYCIN 500 MG TAB PO SCH (12:13)
--- NOTE | 2018-12-28 13:43 | PN ---
PROGRESS NOTE DATE OF SERVICE: 12/28/2018 This is a 38-year-old male who was admitted with a diagnosis of COPD/asthma exacerbation complicated by purulent tracheobronchitis and possible alveolitis/pneumonitis. The patient is better today. He is finally seemingly moving in a positive direction. For the last couple days he has not really gotten much better but has not gotten worse either. 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 Anyway, the patient is finally feeling better. I did ask the nurse to check his room-air resting saturation and also saturation when he is ambulating. Prior to this, he desaturated. Anyway, the patient will eventually follow up in our office with a 6 minute walk distance and complete pulmonary function testing. PHYSICAL EXAMINATION: Current vital signs are reviewed. Temperature is 97.7, heart rate 88, respiratory rate 16, blood pressure 123/72, mean 89, saturations are in the mid 90s on 1.5 L nasal cannula. He appears in no acute distress. HEENT examination is grossly unremarkable. Nasal O2 noted. NECK: Supple. Full range of motion. No adenopathy. Neck veins are flat. CARDIOVASCULAR examination reveals regular rhythm rate. Heart rate about 85 beats per minute. S1, S2 normal. No S3, S4, or murmur. LUNGS: Reveal some very mild coarse expiratory rhonchi. No wheezes or crackles. Breath sounds are improved. ABDOMEN: Soft. Bowel sounds are heard. EXTREMITIES are intact. No cyanosis, clubbing, or edema. SKIN: Without rash. NEUROLOGIC examination is nonfocal. Blood and sputum sampling thus far is negative. LAB DATA: Reviewed. White count 21.3, hemoglobin 14.7, hematocrit 46.2, platelet count 435,000. Sodium, potassium, chloride, CO2 all normal. Anion gap is normal. BUN and creatinine were 18 and 0.71. Influenza studies are negative. CT angiogram revealed no evidence of PE. There was some patchy ground-glass opacities consistent with either pneumonitis or alveolitis. They were in the right middle lobe and lingula. Medications are reviewed. ASSESSMENT: 1. Chronic bronchial asthma/chronic obstructive pulmonary disease exacerbation complicated by purulent tracheobronchitis and possible mild bronchopneumonia involving the right middle lobe and lingula. 2. Chronic and ongoing tobacco dependence. 3. History of vaping. 4. History of hypertension. 5. History of previous marijuana use. 6. History of alcohol use. PLAN: The patient seems to be improved. We will continue with the current regimen. This includes the DuoNeb, Pulmicort, formoterol, Solu-Medrol and Rocephin in combination with Zithromax. Additional recommendations and suggestions are forthcoming. We will have his oxygen checked at rest on room air as well as with exertion. Hopeful discharge within the next 24-48 hours. MMODL / IJN: [id number] /
--- NOTE | 2018-12-29 01:17 | P.PN ---
Subjective Progress Note Date: 12/28/18 Principal diagnosis: Acute COPD exacerbation Patient is a 38-year-old male with a known history of childhood asthma, anxiety/PTSD, ongoing nicotine addiction-smokes 1-1/2 pack per day and hypertension came to ER with complaints of worsening shortness of breath, wheezing and chest tightness. Patient says that his symptoms started last Saturday with upper respiratory infection and nasal congestion and drainage. Patient was seen by his primary care physician and prescribed prednisone tapering course. Patient was also given antibiotics but patient does not know which antibiotic. His symptoms started to get better. Patient traveled to [facility] and symptoms started to get worse. Patient was seen by urgent care on Saturday and was given prednisone 40 mg daily. Her symptoms. Has not been getting better which made him come to ER. Patient says that she felt signi ficantly shortness breath and wheezing and cough. Patient says that he was hypoxic at home. Pulse ox level was 86% as per patient. Patient does have cough without sputum production. WORSE with deep breathing. No fever no chills. Not much sputum production. Denied any nausea vomiting or diarrhea. No headache or dizziness or lightheadedness. Patient continues to smoke daily. EKG showed sinus tachycardia Chest x-ray is negative. WBC 20.2. Influenza PCR negative 12 27 2018 Patient is still having exertional dyspnea, chest tightness and wheezing. No complaints of chest pain. No fever no chills. Patient is being continued on IV steroids and DuoNeb's. WBC count is 24.4 today. D-dimer was not elevated on admission. CT angiogram showed no evidence of pulmonary embolism. Patchy groundglass opacities throughout the left lung may reflect pneumonitis. There is more solid consolidation the right middle lobe and left lingula. Correlate for pneumonia. Ceftriaxone was added along with azithromycin. Pulmonary is on board. Currently patient is still requiring oxygen via nasal cannula. No nausea vomiting or abdominal pain. No diarrhea. No headache or dizziness or lightheadedness. 12/28/2018 Patient is currently sitting on the side of the bed comfortably. Patient says that he is getting better. Patient still desaturating with ambulation to 86%. Currently on oxygen with another cannula at 2 L. Currently being continued on IV steroids and antibiotics. Pulmonary is on board. No fever no chills. Leukocytosis is improving to 21.3 today. No complaints of chest pain. No nausea vomiting or abdominal pain. No diarrhea or dysuria. No other acute overnight issues. Current medications reviewed. Objective - Vital Signs Vital signs: Vital Signs Temp 97.3 F L 12/28/18 12:41 Pulse 84 12/28/18 21:23 Resp 18 12/28/18 12:41 BP 137/80 12/28/18 12:41 Pulse Ox 91 L 12/28/18 20:51 Intake & Output 12/28/18 12/28/18 12/29/18 06:59 18:59 06:59 Intake Total 1670 Balance 1670 Intake: Oral 1670 Other: Voiding Method Toilet # Voids 2 2 - Exam PHYSICAL EXAMINATION: Patient is lying in the bed comfortably, no acute distress, awake alert and oriented.. HEENT: Normocephalic. Neck is supple. Pupils reactive. Nostrils clear. Oral cavity is moist. Ears reveal no drainage. Neck reveals no JVD, carotid bruits, or thyromegaly. CHEST EXAMINATION: Trachea is central. Symmetrical expansion. Bilateral expiratory wheeze and scattered rhonchi. CARDIAC: Normal S1, S2 with no gallops. No murmurs ABDOMEN: Soft. Bowel sounds normal. No organomegaly. No abdominal bruits. Extremities: reveal no edema. No clubbing or cyanosis Neurologically awake, alert, oriented x3 with well-coordinated movements. No focal deficits noted Skin: No rash or skin lesions. Psychiatric: Coperative. Nonsuicidal Musculoskeletal: No joint swelling or deformity. Normal range of motion. - Labs CBC & Chem 7: 12/28/18 11:15 12/28/18 11:15 Labs: Abnormal Lab Results - Last 24 Hours (Table) 12/28/18 12/28/18 Range/Units 11:15 11:15 WBC 21.3 H (3.8-10.6) k/uL Neutrophils # 18.1 H (1.3-7.7) k/uL Monocytes # 1.1 H (0-1.0) k/uL Basophils # 0.3 H (0-0.2) k/uL Glucose 131 H (74-99) mg/dL Microbiology - Last 24 Hours (Table) 12/25/18 21:12 Blood Culture - Preliminary Blood No Growth after 48 hours Assessment and Plan Assessment: Acute bronchospasm/asthma exacerbation due to acute tracheobronchitis Bilateral interstitial pneumonitis. Possible underlying COPD History of childhood asthma Hypertension Anxiety/PTSD History of marijuana use Alcohol abuse Ongoing nicotine addiction DVT prophylaxis with heparin subcu Plan: Patient will be continued on IV Solu-Medrol. Patient was given a dose of ceftriaxone in the ER. Continue With ceftriaxone and azithromycin. Pulmonary is following. Continue with DuoNeb's and follow up closely. Oxygen therapy as needed. Further recommendations based on the clinical course. Patient was counseled extensively for smoking cessation. Time with Patient: Greater than 30
[2018-12-29] MEDS: methylPREDNISolone SOD SUCCI 125 MG/2 ML VIAL IV SCH ×2 (05:18→13:06)
[2018-12-29 06:30] VITALS: BP 141/91; RESP 18; TEMP 97.6
[2018-12-29] MEDS: guaiFENesin 600 MG TABLET.ER PO SCH (08:00)
[2018-12-29] MEDS: THIAMINE 100 MG TAB PO SCH (08:00)
[2018-12-29] MEDS: NICOTINE 21MG/24HR PATCH TRANSDERM SCH (08:00)
[2018-12-29] MEDS: LORATADINE 10 MG TAB PO SCH (08:00)
[2018-12-29 08:01] LABS: Basophils # (A) 0.4 k/uL (0-0.2); Basophils % (A) 2 %; Eosinophils # (A) 0.1 k/uL (0-0.7); Eosinophils % (A) 0 %; HCT 47.7 % (39.0-53.0); HGB 15.2 gm/dL (13.0-17.5); Lymphocytes # (A) 1.5 k/uL (1.0-4.8); Lymphocytes % (A) 7 %; MCH 31.8 pg (25.0-35.0); MCHC 31.9 g/dL (31.0-37.0); MCV 99.6 fL (80.0-100.0); Mean Platelet Volume 6.5; Monocytes # (A) 0.9 k/uL (0-1.0); Monocytes % (A) 4 %; Neutrophils # (A) 17.8 k/uL (1.3-7.7); Neutrophils % (A) 86 %; Platelet Count 456 k/uL (150-450); RBC 4.79 m/uL (4.30-5.90); RDW 12.5 % (11.5-15.5); WBC 20.8 k/uL (3.8-10.6)
[2018-12-29] MEDS: LISINOPRIL 10 MG TAB PO SCH (08:01)
[2018-12-29] MEDS: HEPARIN SODIUM,PORCINE 5,000 UNIT/ML 1 ML VIAL SQ SCH (08:01)
[2018-12-29 08:17] LABS: African American GFR (CKD) >90 (>60 ml/min/1.73 sqM); Anion Gap 13 mmol/L; Blood Urea Nitrogen 19 mg/dL (9-20); Calcium 10.1 mg/dL (8.4-10.2); Carbon Dioxide 23 mmol/L (22-30); Chloride 101 mmol/L (98-107); Glucose 139 mg/dL (74-99); Sodium 137 mmol/L (137-145)
[2018-12-29] MEDS: FORMOTEROL FUMARATE 20 MCG/2 ML NEBU INHALATION SCH (09:45)
[2018-12-29] MEDS: IPRATROPIUM-ALBUTEROL 3 ML NEB INHALATION SCH ×2 (09:46→13:06)
[2018-12-29] MEDS: BUDESONIDE 1 MG/2 ML NEBU INHALATION SCH (09:46)
[2018-12-29 09:48] VITALS: PULSE 88
[2018-12-29] MEDS: AZITHROMYCIN 500 MG TAB PO SCH (13:05)
--- NOTE | 2018-12-29 14:19 | P.DS ---
Providers Date of admission: 12/27/18 13:45 Expected date of discharge: 12/29/18 Attending physician: Omid Rivas Consults: 12/26/18 11:03 Consult Physician Routine Consulting Provider: Anthony Chacko Consult Reason/Comments: copd. failed op Do you want consulting provider notified?: Yes Primary care physician: [facility] Course: Final diagnosis Acute bronchospasm/asthma exacerbation due to acute tracheobronchitis Bilateral interstitial pneumonitis Possible underlying COPD History of childhood asthma Hypertension Anxiety/PTSD History of marijuana use Alcohol abuse Ongoing nicotine addiction DVT prophylaxis Discharge disposition Patient is being discharged in a stable condition with guarded prognosis to home and will follow-up with pulmonary Dr. Chacko in the clinic in 1-2 weeks. Patient will be going home on oral antibiotics, oral prednisone taper, and nicotine patches upon discharge. Total time taken is 35 minutes. History of present illness This is a 38-year-old male was recently admitted for worsening shortness of breath, wheezing, chest tightness and was being closely monitored. Pulmonary was following. Per pulmonary recommendations patient is to continue on oral antibiotics and oral prednisone taper upon discharge and will follow-up in the clinic in 1-2 weeks for PFT testing and recheck. Discussed with patient at length about smoking cessation and was provided with nicotine patches upon discharge. Patient will be following up with primary care provider upon discharge as well. Patient's white count was elevated and will need repeat labs in 2-3 days. Currently patient's condition is stable with much improvement and would like to go home today. Patient states that he does have inhalers they just refilled at home. Patient states that he would like to quit smoking and will be trying harder this time. Currently patient's condition is stable and is ready for discharge home. Patient denies any chest pain, shortness of breath, or palpitations at this time. Patient is afebrile. Patient denies any nausea or vomiting and has been tolerating diet. Guarded prognosis. On exam vital signs are stable. Temp is 97.6F, pulse is 73, respirations are 18, blood pressure is 141/91, oxygen saturation is 95% on room air. Cardio S1 and S2 are present. Respiratory system shows diminished breath sounds at the bases with mild expiratory rhonchi noted on exam. Abdomen is soft, thin, nontender. Nervous system shows no focal deficits and gait is steady. Please refer to medication reconciliation sheet for a list of medications. Patient Condition at Discharge: Fair Plan - Discharge Summary New Discharge Prescriptions: New Nicotine 21Mg/24Hr Patch [Habitrol] 1 patch TRANSDERM DAILY 20 Days #20 patch guaiFENesin [Mucinex] 1,200 mg PO Q12HR 7 Days #14 tablet.er Cefdinir [Omnicef] 300 mg PO Q12HR 5 Days #10 capsule predniSONE 10 mg PO DIRECTED #30 tab Thiamine [Vitamin B-1] 100 mg PO DAILY 30 Days #30 tab Azithromycin [Zithromax] 500 mg PO DAILY@1200 3 Days #3 tab Continue Lisinopril [Prinivil] 10 mg PO DAILY Loratadine [Claritin] 10 mg PO DAILY Albuterol Sulfate [Ventolin HFA] 2 puff INHALATION RT-QID PRN PRN Reason: Shortness Of Breath Discontinued predniSONE 40 mg PO DAILY guaiFENesin [Mucinex] 600 mg PO BID Discharge Medication List Albuterol Sulfate [Ventolin HFA] 2 puff INHALATION RT-QID PRN 12/25/18 [History] Lisinopril [Prinivil] 10 mg PO DAILY 12/25/18 [History] Loratadine [Claritin] 10 mg PO DAILY 12/25/18 [History] Azithromycin [Zithromax] 500 mg PO DAILY@1200 3 Days #3 tab 12/29/18 [Rx] Cefdinir [Omnicef] 300 mg PO Q12HR 5 Days #10 capsule 12/29/18 [Rx] Nicotine 21Mg/24Hr Patch [Habitrol] 1 patch TRANSDERM DAILY 20 Days #20 patch 12/29/18 [Rx] Thiamine [Vitamin B-1] 100 mg PO DAILY 30 Days #30 tab 12/29/18 [Rx] guaiFENesin [Mucinex] 1,200 mg PO Q12HR 7 Days #14 tablet.er 12/29/18 [Rx] predniSONE 10 mg PO DIRECTED #30 tab 12/29/18 [Rx] Follow up Appointment(s)/Referral(s): Erasto Ricketts DO [Primary Care Provider] - 1-2 days Anthony Chacko DO [Doctor of Osteopathic Medicine] - 1 Week Ambulatory/Diagnostic Orders: Complete Blood Count w/diff [LAB.AMB] Time Frame: 3 Days, Location: None Selected Patient Instructions/Handouts: Acute Bronchitis (ED) Activity/Diet/Wound Care/Special Instructions: Activity limited until follow up follow up with pcp upon discharge repeat labs in 2-3 days complete full course of antibiotics avoid all tobacco use follow up with pulmonary in 1-2 weeks. Discharge Disposition: HOME SELF-CARE
--- NOTE | 2018-12-29 17:53 | P.PN ---
Subjective Progress Note Date: 12/29/18 Principal diagnosis: Acute exacerbation of chronic bronchial asthma/COPD, complicated with bronchopneumonia involving the right middle lobe and lingula On 12/29/2018 patient seen in follow-up on medical surgical floor. He states he is feeling better, breathing easier, he is tolerating ambulation, he is off oxygen, no worsening dyspnea, denies any fever or chills, denies any chest pain, or hemoptysis, melena pulse ox is 95%, afebrile, hemodynamically stable, today's labs have been reviewed, listed cell count is down trending, at 20.8, hemoglobin is 15.2, electrodes and renal profile were within normal limits, influenza screen was negative. Patient has been treated with the combination of Rocephin and Zithromax for bilateral pneumonia involving the right middle lobe and lingula. He is doing well, he is requesting to go home today. Will need outpatient follow-up with Dr. Chacko within one week Objective - Vital Signs Vital signs: Vital Signs Temp 97.6 F 12/29/18 05:26 Pulse 88 12/29/18 10:13 Resp 18 12/29/18 05:26 BP 141/91 12/29/18 05:26 Pulse Ox 91 L 12/29/18 07:08 Intake & Output 12/28/18 12/29/18 12/29/18 18:59 06:59 18:59 Intake Total 2139 Balance 2139 Intake: Intake, IV Titration 50 Amount cefTRIAXone 1 gm In 50 Sodium Chloride 0.9% 50 ml @ 100 mls/hr IVPB Q24HR [facility] Rx#:[id number] Oral 2089 Other: Voiding Method Toilet # Voids 2 # Bowel Movements 1 - Exam GENERAL EXAM: Alert, pleasant, 38-year-old white male, on room air, comfortable in no apparent distress. HEAD: Normocephalic/atraumatic. EYES: Normal reaction of pupils, equal size. Conjunctiva pink, sclera white. NOSE: Clear with pink turbinates. THROAT: No erythema or exudates. NECK: No masses, no JVD, no thyroid enlargement, no adenopathy. CHEST: No chest wall deformity. Symmetrical expansion. LUNGS: Equal air entry with no crackles, some scattered wheezes, and a few scattered rhonchi . CVS: Regular rate and rhythm, normal S1 and S2, no gallops, no murmurs, no rubs ABDOMEN: Soft, nontender. No hepatosplenomegaly, normal bowel sounds, no guarding or rigidity. EXTREMITIES: No clubbing, no edema, no cyanosis, 2+ pulses and upper and lower extremities. MUSCULOSKELETAL: Muscle strength and tone normal. SPINE: No scoliosis or deformity SKIN: No rashes CENTRAL NERVOUS SYSTEM: Alert and oriented -3. No focal deficits, tone is normal in all 4 extremities. PSYCHIATRIC: Alert and oriented -3. Appropriate affect. Intact judgment and insight. - Labs CBC & Chem 7: 12/29/18 07:37 12/29/18 07:37 Labs: Abnormal Lab Results - Last 24 Hours (Table) 12/29/18 12/29/18 Range/Units 07:37 07:37 WBC 20.8 H (3.8-10.6) k/uL Plt Count 456 H (150-450) k/uL Neutrophils # 17.8 H (1.3-7.7) k/uL Basophils # 0.4 H (0-0.2) k/uL Glucose 139 H (74-99) mg/dL Microbiology - Last 24 Hours (Table) 12/26/18 22:11 Gram Stain - Final Sputum Sputum Culture - Final 12/25/18 21:12 Blood Culture - Preliminary Blood No Growth after 72 hours Assessment and Plan Plan: Assessment: #1 Acute exacerbation of chronic bronchial asthma, complicated by purulent tracheobronchitis and multilobar pneumonia. #2 Chronic and ongoing tobacco dependence including vaping. #3 Hypertension. #4 History of previous marijuana use. #5 History of alcohol use. Plan: Patient is doing well, tolerating ambulation, he is on room air, no fever or chills, from pulmonary perspective patient is stable for discharge home on oral antibiotics, prednisone taper, and NicoDerm CQ patch, patient has a rescue inha ler at home, he may need a maintenance inhaler, but we will see him in the office in follow-up and patient will need outpatient PFT and a follow-up chest x-ray I performed a history & physical examination of the patient and discussed their management with my nurse practitioner, Lilian eFrreira. I reviewed the nurse practitioner's note and agree with the documented findings and plan of care. Lung sounds are positive for a few scattered wheezes and rhonchi. The findings and the impression was discussed with the patient. I attest to the documentation by the nurse practitioner. Time with Patient: Less than 30
--- NOTE | 2019-01-02 09:12 | CDI ---
Documentation Clarification Form Date: 01/02/19 From: Erin Noriega Phone: If questions call Diandra Parnell @ [phone], Hours-8:30 am & 5 pm MPaulette Ba Admit Date: 12/27/2018 1:45:00 PM Patient Name: Kaveh Jackson Visit Number: [id number] Discharge Date: 12/29/2018 1:06:00 PM ATTENTION: The Clinical Documentation Specialists (CDI) and [facility] Coding Staff appreciate your assistance in clarifying documentation. Please respond to the clarification below the line at the bottom and electronically sign. The CDI & [facility] Coding staff will review the response and follow-up if needed. Please note: Queries are made part of the Legal Health Record. If you have any questions, please contact the author of this message via ITS. Dr. Tegan Gill This patient is admitted with hypoxia per H&P, PNs 12/27 & 12/28. History/Risk Factors: asthma, COPD, smoker, hx vaping Clinical Indicators: Per ED notes - respiratory distress, mild tachypnea, wheezes Lactate -1.4 CO2: 26, 21, 26, 23 Vital Signs: P-119, R-24, BP- 172/87 Pulse Ox: 92, 90, 94, 90, 96, 91, 93, 92, 90, 94, 92, 96, 91, 92, 90, 91, 92, 95 Treatment: nebulizer, O2 Oxygen: 2L - 3L Medications: IV Rocephin, IV Solu-Medrol, IV fluids, po Predisone, PO Zithromax, Perforomist In order to accurately reflect the severity of condition, please indicate if the above clinical findings and treatment signify a respiratory condition, such as: Acute Respiratory Distress Acute Bronchitis Chronic Bronchitis COPD exacerbation Respiratory Failure, please specify -Acute -Acute on Chronic -Chronic Further specify (if known): -With hypercapnia? -With hypoxia? Other, please specify Unable to determine Acute hypoxic respiratory failure secondary to COPD exacerbation MTDD
--- NOTE | 2019-01-06 12:31 | CDI ---
Documentation Clarification Form Date: 01/02/2019 From: Erin Noriega Phone: If questions call Diandra Parnell @ [phone], Hours-8:30 am & 5 pm M- F Admit Date: 12/27/2018 1:45:00 PM Patient Name: Kaveh Jackson Visit Number: [id number] Discharge Date: 12/29/2018 1:06:00 PM ATTENTION: The Clinical Documentation Specialists (CDI) and [facility] Coding Staff appreciate your assistance in clarifying documentation. Please respond to the clarification below the line at the bottom and electronically sign. The CDI & [facility] Coding staff will review the response and follow-up if needed. Please note: Queries are made part of the Legal Health Record. If you have any questions, please contact the author of this message via ITS. Dr. Tegan Gill Bilateral interstitial pneumonitis is documented in the discharge summary. Please specify the type with terms such as: Acute Lymphoid Non-specific Due to inhalation of chemicals, gases, fumes or vapors Other (please specify in the medical record) Clinically unable to further specify Unknown Acute MTDD
== END 2018-12-29 13:06 | disposition home or self-care (01) | DRG 196 ==
LOC: EC 20:27 → 4MS4W 23:12 → OBSVTOIN 12-27 13:45
PROVIDERS: ADMIT Hospitalist; ATTEND Hospitalist
DX: J84.114 Acute interstitial pneumonitis (principal); J96.01 Acute respiratory failure with hypoxia; J45.901 Unspecified asthma with (acute) exacerbation; J44.0 Chronic obstructive pulmonary disease with (acute) lower respiratory infection; J44.1 Chronic obstructive pulmonary disease with (acute) exacerbation; J70.5 Respiratory conditions due to smoke inhalation; J20.9 Acute bronchitis, unspecified; T59.811A Toxic effect of smoke, accidental (unintentional), initial encounter; I10 Essential (primary) hypertension; F17.210 Nicotine dependence, cigarettes, uncomplicated; Z71.6 Tobacco abuse counseling; Z79.52 Long term (current) use of systemic steroids; Z79.899 Other long term (current) drug therapy; F43.10 Post-traumatic stress disorder, unspecified; F10.10 Alcohol abuse, uncomplicated; Z86.79 Personal history of other diseases of the circulatory system; Z87.09 Personal history of other diseases of the respiratory system
CPT/HCPCS: 36415; 71046; 71275; 80048; 80053; 83605; 84484; 85025; 85027; 85379; 85610; 85730; 87040; 87070; 87205; 87502; 93005; 94640; 94760; 96365; 96375; 99285

== ENCOUNTER 2019-09-18 14:11 | Emergency (ER) | payer BC ==
[2019-09-18 14:18] VITALS: TEMP 98.8
[2019-09-18] MEDS ORDERED: ACET/COD 300 MG/30 MG STARTER PACK 6 TAB BTL PO STA (14:34)
[2019-09-18] MEDS ORDERED: IBUPROFEN 600 MG STARTER PACK 4 TAB BTL PO STA (14:34)
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
--- NOTE | 2019-09-18 14:49 | XR ---
Left knee HISTORY: Trauma and pain 3 views of the left knee Bone mineralization, joint spaces and alignment are maintained. Suprapatellar increased density may r epresent a small effusion. Ossific density at the level of the tibial tubercle likely represents unfu sed apophysis. IMPRESSION: No acute fracture or dislocation.
[2019-09-18 16:03] VITALS: BP 121/85; PULSE 88; RESP 17
== END 2019-09-18 16:00 | disposition home or self-care (01) ==
LOC: EC 14:11
DX: S83.412A Sprain of medial collateral ligament of left knee, initial encounter (principal); I10 Essential (primary) hypertension; F17.200 Nicotine dependence, unspecified, uncomplicated; Z79.899 Other long term (current) drug therapy; V29.9XXA Motorcycle rider (driver) (passenger) injured in unspecified traffic accident, initial encounter; Y92.488 Other paved roadways as the place of occurrence of the external cause
CPT/HCPCS: 99284